=== PATIENT | male | born 1940 | race Caucasian/White ===

== ENCOUNTER → 2016-07-08 | Outpatient (REF) | payer BC ==
[~2016-07-08] MED LIST: ACET500C PO; ASPI81TA85 PO; CALC600T9 PO; CLOP75TA2 PO; COUM2.5T11 PO; GLUC500C4 PO; LIPI20TA PO; LISI-542 PO; MULT1TAB8 PO; PERC5TAB6 PO; VITA400C29 PO
[2016-07-08 11:56] LABS: BASO % 0.4 % (0.0-1.0); EOS # 0.2 K/mm3 (0.0-0.50); EOS % 2.9 % (0.0-3.0); LARGE UNSTAINED CELL # 0.2 K/mm3 (0.0-0.4); LYMPH # 3.4 K/mm3 (1.5-4.5); LYMPH % 39.6 % (24.0-44.0); MEAN CORPUSCULAR HEMOGLOBIN 30.8 pg (27.0-33.0); MEAN CORPUSCULAR HGB CONC 33.7 g/dl (32.0-36.5); MEAN CORPUSCULAR VOLUME 91.3 fl (80.0-96.0); MONO # 0.6 K/mm3 (0.0-0.8); MONO % 7.3 % (0.0-5.0); NEUTROPHILS # 3.9 K/mm3 (1.8-7.7); NEUTROPHILS % 47.9 % (36.0-66.0); PLATELET COUNT, AUTOMATED 168 k/mm3 (150-450); RED CELL DISTRIBUTION WIDTH 13.9 % (11.5-14.5); WHITE BLOOD COUNT 8.2 K/mm3 (4.0-10.0)
[2016-07-08 12:23] LABS: ALBUMIN 4.1 GM/DL (3.2-5.2); ALBUMIN/GLOBULIN RATIO 1.32 (1.00-1.93); BILIRUBIN,TOTAL 0.6 MG/DL (0.2-1.0); CALCIUM LEVEL 8.6 MG/DL (8.8-10.2); CREATININE FOR GFR 1.28 MG/DL (0.70-1.30); GLOMERULAR FILTRATION RATE 58.2 (>42); PERCENT SATURATION 27.5 % (19.7-37.4); POTASSIUM SERUM 4.8 MEQ/L (3.5-5.1); TOTAL PROTEIN 7.2 GM/DL (6.4-8.2)
== END ==
LOC: M SFHCPLAZ 10:27
PROVIDERS: ATTEND Family Medicine
DX: N18.3 Chronic kidney disease, stage 3 (moderate) (principal); E55.9 Vitamin D deficiency, unspecified; R73.01 Impaired fasting glucose; Z12.5 Encounter for screening for malignant neoplasm of prostate
CPT/HCPCS: 36415; 80053; 82728; 83036; 83550; 83970; 85025; G0103

== ENCOUNTER → 2017-02-10 | Outpatient (REF) | payer BC ==
[~2017-02-10] MED LIST changes: -COUM2.5T11 PO; +COUM2.5T17 PO; +PERC5TAB12 PO; -PERC5TAB6 PO
[2017-02-10 11:56] LABS: ALBUMIN 3.9 GM/DL (3.2-5.2); ALBUMIN/GLOBULIN RATIO 1.26 (1.00-1.93); BILIRUBIN,TOTAL 0.8 MG/DL (0.2-1.0); CALCIUM LEVEL 8.8 MG/DL (8.8-10.2); CREATININE FOR GFR 1.48 MG/DL (0.70-1.30); GLOMERULAR FILTRATION RATE 49.2 (>42); POTASSIUM SERUM 4.6 MEQ/L (3.5-5.1)
== END ==
LOC: M SFHCPLAZ 09:23
PROVIDERS: ATTEND Family Medicine
DX: N18.3 Chronic kidney disease, stage 3 (moderate) (principal); R73.01 Impaired fasting glucose; E78.5 Hyperlipidemia, unspecified

== ENCOUNTER → 2017-02-21 | Outpatient (CLI) | payer BC ==
--- NOTE | 2017-02-21 09:21 | REP ---
CT Head without contrast HISTORY: Headache COMPARISON: 06/14/2013 Areas of decreased attenuation is present in the left basal ganglia. This represents an old lacunar infarction. Areas of decreased attenuation are present in the periventricular white matter. This represents small-vessel ischemic disease. There is no intraparenchymal hemorrhage, acute infarct, mass or midline shift. The ventricular system and cortical sulci are dilated consistent with mild volume loss. There is no extra cerebral collection. There is no fracture. Mucosal thickening is present in the left sphenoid sinus. IMPRESSION: 1. 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 2. Small vessel ischemic disease. 3. Mild volume loss. Signed by Javi Delaney MD 02/21/2017 09:11 A
== END ==
LOC: M RAD 08:54
PROVIDERS: ATTEND Family Medicine
DX: R51 Headache (principal); I73.9 Peripheral vascular disease, unspecified; G93.9 Disorder of brain, unspecified

== ENCOUNTER → 2018-05-18 | Outpatient (REF) | payer BC, OTHER ==
[2018-05-18 12:07] LABS: ALT/SGPT 33 U/L (12-78); BILIRUBIN,TOTAL 0.4 MG/DL (0.2-1.0); BLOOD UREA NITROGEN 19 MG/DL (7-18); C REACTIVE PROTEIN QUANTITATIV < 0.30 MG/DL (0.00-0.30); CARBON DIOXIDE LEVEL 28 MEQ/L (21-32); CHLORIDE LEVEL 109 MEQ/L (98-107); CHOLESTEROL LEVEL 163 MG/DL (<200); CHOLESTEROL RISK RATIO 2.587 (<5); CPK CREATINE PHOSPHOKINASE 84 U/L (39-308); CREATININE FOR GFR 1.28 MG/DL (0.70-1.30); FREE T4 0.84 NG/DL (0.76-1.46); GLOMERULAR FILTRATION RATE 57.9 (>42); GLUCOSE, FASTING 102 MG/DL (70-100); HDL CHOLESTEROL 63 MG/DL (>40); LDL CHOLESTEROL 74 MG/DL (<100); NON-HDL-C 100 MG/DL; NT-PRO BNP 98 PG/ML (<450); POTASSIUM SERUM 4.5 MEQ/L (3.5-5.1); SODIUM LEVEL 143 MEQ/L (136-145); TOTAL PROTEIN 7.1 GM/DL (6.4-8.2); TRIGLYCERIDES LEVEL 130 MG/DL (<150)
== END ==
LOC: M SFHCPLAZ 10:05
PROVIDERS: ATTEND Family Medicine
DX: E78.5 Hyperlipidemia, unspecified (principal); I12.9 Hypertensive chronic kidney disease with stage 1 through stage 4 chronic kidney disease, or unspecified chronic kidney disease; N18.3 Chronic kidney disease, stage 3 (moderate); R73.01 Impaired fasting glucose; Z12.5 Encounter for screening for malignant neoplasm of prostate; E55.9 Vitamin D deficiency, unspecified

== ENCOUNTER → 2019-01-26 | Outpatient (REF) | payer MEDICARE, OTHER ==
[2019-01-26 12:23] LABS: BASO % 0.6 % (0.0-1.0); EOS # 0.2 10^3/uL (0.0-0.5); EOS % 3.2 % (0.0-3.0); HEMATOCRIT 43.5 % (42.0-52.0); HEMOGLOBIN 14.3 g/dl (13.5-17.5); LYMPH # 2.3 10^3/uL (1.5-5.0); LYMPH % 35.1 % (24.0-44.0); MEAN CORPUSCULAR HEMOGLOBIN 31.2 pg (27.0-33.0); MEAN CORPUSCULAR HGB CONC 32.9 g/dl (32.0-36.5); MONO # 0.5 10^3/uL (0.0-0.8); MONO % 7.9 % (0.0-5.0); NEUTROPHILS # 3.5 10^3/uL (1.5-8.5); PLATELET COUNT, AUTOMATED 175 10^3/uL (150-450); RED BLOOD COUNT 4.58 10^6/uL (4.30-6.10); WHITE BLOOD COUNT 6.6 10^3/uL (4.0-10.0)
[2019-01-26 12:42] LABS: HEMOGLOBIN A1c 6.1 %
[2019-01-26 13:00] LABS: BILIRUBIN,TOTAL 0.8 MG/DL (0.2-1.0); CALCIUM LEVEL 9.4 MG/DL (8.8-10.2); CREATININE FOR GFR 1.35 MG/DL (0.70-1.30); GLOMERULAR FILTRATION RATE 54.4 (>42); MAGNESIUM LEVEL 2.3 MG/DL (1.8-2.4); POTASSIUM SERUM 4.6 MEQ/L (3.5-5.1); TOTAL PROTEIN 6.9 GM/DL (6.4-8.2)
== END ==
LOC: M SFHCPLAZ 10:37
PROVIDERS: ATTEND Physician Assistant Medical
DX: N18.3 Chronic kidney disease, stage 3 (moderate) (principal); I10 Essential (primary) hypertension; R73.01 Impaired fasting glucose

== ENCOUNTER → 2019-07-12 | Outpatient (CLI) | payer OTHER ==
[2019-07-12 11:54] LABS: BASO % 0.3 % (0.0-1.0); EOS # 0.2 10^3/uL (0.0-0.5); EOS % 3.6 % (0.0-3.0); HEMOGLOBIN 13.4 g/dl (13.5-17.5); LYMPH # 2.8 10^3/uL (1.5-5.0); LYMPH % 41.2 % (24.0-44.0); MEAN CORPUSCULAR HEMOGLOBIN 30.7 pg (27.0-33.0); MEAN CORPUSCULAR HGB CONC 32.7 g/dl (32.0-36.5); MONO # 0.5 10^3/uL (0.0-0.8); MONO % 7.7 % (0.0-5.0); NEUTROPHILS # 3.2 10^3/uL (1.5-8.5); NEUTROPHILS % 46.9 % (36.0-66.0); PLATELET COUNT, AUTOMATED 165 10^3/uL (150-450); RED BLOOD COUNT 4.36 10^6/uL (4.30-6.10); WHITE BLOOD COUNT 6.7 10^3/uL (4.0-10.0)
[2019-07-12 12:06] LABS: ALBUMIN 3.6 GM/DL (3.2-5.2); BILIRUBIN,TOTAL 0.7 MG/DL (0.2-1.0); CREATININE FOR GFR 1.39 MG/DL (0.70-1.30); GLOMERULAR FILTRATION RATE 52.5 (>42); MAGNESIUM LEVEL 2.1 MG/DL (1.8-2.4); POTASSIUM SERUM 4.6 MEQ/L (3.5-5.1); TOTAL PROTEIN 6.4 GM/DL (6.4-8.2)
[2019-07-12 13:44] LABS: HEMOGLOBIN A1c 6.2 %
== END ==
LOC: M PLALAB 09:59
PROVIDERS: ATTEND Physician Assistant Medical
DX: I12.9 Hypertensive chronic kidney disease with stage 1 through stage 4 chronic kidney disease, or unspecified chronic kidney disease (principal); R73.01 Impaired fasting glucose; N18.3 Chronic kidney disease, stage 3 (moderate)

== ENCOUNTER → 2019-08-02 | Outpatient (CLI) | payer OTHER ==
--- NOTE | 2019-08-02 12:08 | REP ---
Clinical: Testicular cyst. Technique: Real time garzon scale and color Doppler evaluation using linear and curved array transducers. Findings: The bilateral testicles are normal in contour, size, echogenicity, and vascularity without intratesticular mass lesion, infectious/inflammatory process or torsion. No significant hydroceles or varicoceles noted. Bilateral complex epididymal cysts/spermatocele noted. Largest cystic lesion on the right side with internal debris measures 6.0 x 4.5 x 4.4 cm while the largest left-sided epididymal cyst measures 8 mm diameter. A left sided medial tunica cyst is also appreciated measuring approximately 9 x 8 x 8 mm. Impression: 1. Normal bilateral testicles. 2. Large right epididymal cyst/spermatocele with internal debris. 3. Smaller left epididymal and left tunica cysts. Electronically Signed by Ge Cortez MD 08/02/2019 11:59 A
== END ==
LOC: M RAD 10:53
PROVIDERS: ATTEND Family Medicine
DX: N44.2 Benign cyst of testis (principal)

== ENCOUNTER → 2019-08-05 | Outpatient (CLI) | payer OTHER ==
[~2019-08-05] MED LIST changes: +GASTROGRAFIN SOLUTION 30ML (Q9963) As Ordered ONE; +ISOVUE-370 76% 100ML VIAL (Q9967) As Ordered ONE
--- NOTE | 2019-08-05 15:37 | REP ---
CT ABDOMEN AND PELVIS WITH ORAL AND IV CONTRAST: TECHNIQUE: Axial contrast enhanced images from the lung bases to the pubic symphysis using 100 mL Isovue 370 intravenous contrast material with multiplanar reformations. Visualized lung bases demonstrate mild interstitial fibrosis. There is a small hiatal hernia. Liver demonstrates no mass. There are small gallstones in the gallbladder without evidence of gallbladder wall edema. There is no evidence of biliary dilatation. Spleen is normal in size with no intrinsic abnormality. The adrenal glands demonstrate no nodule. No pancreatic mass is seen. A few peripelvic cysts are seen of the left kidney without other renal abnormality bilaterally. There is aneurysmal dilatation of the distal abdominal aorta below the level of the renal arteries, maximum AP diameter is 3.7 cm. There is mild atherosclerotic calcification of the abdominal aorta. There is no adenopathy. There is no free air or free fluid. There is no bowel wall thickening. There is diffuse diverticulosis of the left and sigmoid colon without evidence of acute diverticulitis. Diverticulum was noted at the left base of the bladder with no other bladder abnormality identified. 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 There are degenerative changes of the spine. IMPRESSION: Left colonic and sigmoid diverticulosis without evidence of acute diverticulitis. No free air or free fluid. 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 Small hiatal hernia. Small gallstones in the gallbladder without evidence of gallbladder wall edema. Aneurysmal dilatation of the distal abdominal aorta maximum AP diameter is 3.7 cm. There are a few peripelvic cysts of the left kidney. Electronically Signed by Fracisco Bowen MD 08/05/2019 05:00 P
== END ==
LOC: M RAD 11:45
PROVIDERS: ATTEND Family Medicine
DX: R10.9 Unspecified abdominal pain (principal)
CPT/HCPCS: 74177; Q9963; Q9967

== ENCOUNTER → 2020-04-21 | Outpatient (CLI) | payer OTHER ==
[~2020-04-21] MED LIST changes: -GASTROGRAFIN SOLUTION 30ML (Q9963) As Ordered ONE; -ISOVUE-370 76% 100ML VIAL (Q9967) As Ordered ONE
--- NOTE | 2020-04-21 15:58 | REPPI ---
INDICATION: DJD. COMPARISON: 01/19/2016. TECHNIQUE: There are two views. 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 There is no fracture or dislocation. There are no calcifications or foreign bodies. IMPRESSION: Right hip arthroplasty, unchanged. <Electronically signed by Fracisco Platt > 04/21/20 [id number]
--- NOTE | 2020-04-21 16:00 | REPPI ---
INDICATION: DJD COMPARISON: None. TECHNIQUE: Four views. FINDINGS: There is a right hip arthroplasty in satisfactory position and alignment. Mineralization is normal. There is no fracture or dislocation. There are no calcifications or foreign bodies. IMPRESSION: Right hip arthroplasty. Otherwise, negative right femur. <Electronically signed by Fracisco Platt > 04/21/20 [id number]
--- NOTE | 2020-04-21 16:23 | REPPI ---
INDICATION: DJD. COMPARISON: Comparison study is from September 11, 2015.. TECHNIQUE: Five views. FINDINGS: There is straightening of the normal lumbar lordosis. There is diffuse degenerative disc disease with narrowing and anterior and posterior osteophyte formation. Vertebral body heights are preserved. Alignment is normal. No bony destructive lesion is seen. Psoas margins are intact. Sacrum and SI joints are unremarkable. There is a prosthetic right hip joint. No fracture or collapse. No bony destructive lesions seen. IMPRESSION: Fairly advanced degenerative disc disease. Straightening. There is some progressive degenerative disc narrowing at L3-4 compared to the prior study otherwise unchanged. <Electronically signed by Ion Mendoza > 04/21/20 [id number]
== END ==
LOC: M PLAIMG 13:15
PROVIDERS: ATTEND Family Medicine
DX: M47.816 Spondylosis without myelopathy or radiculopathy, lumbar region (principal); M51.36 Other intervertebral disc degeneration, lumbar region; M25.78 Osteophyte, vertebrae; E78.5 Hyperlipidemia, unspecified; R73.01 Impaired fasting glucose; E55.9 Vitamin D deficiency, unspecified; D75.89 Other specified diseases of blood and blood-forming organs; Z12.5 Encounter for screening for malignant neoplasm of prostate; Z96.651 Presence of right artificial knee joint
CPT/HCPCS: 36415; 72110; 73502; 73552; 80053; 80061; 82306; 82607; 83036; 83525; 83970; 84165; G0103

== ENCOUNTER → 2020-04-21 | Outpatient (REF) | payer OTHER ==
[2020-04-21 15:57] LABS: HEMOGLOBIN A1c 6.2 %
[2020-04-21 16:10] LABS: ALBUMIN 3.7 GM/DL (3.2-5.2); ALT/SGPT 31 U/L (12-78); BILIRUBIN,TOTAL 0.6 MG/DL (0.2-1.0); BLOOD UREA NITROGEN 26 MG/DL (7-18); CALCIUM LEVEL 8.7 MG/DL (8.8-10.2); CARBON DIOXIDE LEVEL 28 MEQ/L (21-32); CHLORIDE LEVEL 110 MEQ/L (98-107); CHOLESTEROL LEVEL 161 MG/DL (<200); CHOLESTEROL RISK RATIO 2.875 (<5); CREATININE FOR GFR 1.49 MG/DL (0.70-1.30); GLOMERULAR FILTRATION RATE 48.3 (>35); GLUCOSE, FASTING 115 MG/DL (70-100); HDL CHOLESTEROL 56 MG/DL (>40); LDL CHOLESTEROL 68 MG/DL (<100); NON-HDL-C 105 MG/DL; POTASSIUM SERUM 4.5 MEQ/L (3.5-5.1); SODIUM LEVEL 144 MEQ/L (136-145); TOTAL PROTEIN 6.7 GM/DL (6.4-8.2); TRIGLYCERIDES LEVEL 186 MG/DL (<150)
[2020-04-21 16:18] LABS: PTH INTACT 76.2 PG/ML (18.5-88.0); VITAMIN B12 LEVEL 420 PG/ML (247-911)
[2020-04-24 12:09] LABS: ALBUMIN 3.95 GM/DL (3.29-5.55); ALBUMIN % 58.9 % (55.8-66.1); ALPHA-1-GLOBULIN % 4.9 % (2.9-4.9); ALPHA-1-GLOBULINS 0.33 GM/DL (0.17-0.41); ALPHA-2-GLOBULINS 0.91 GM/DL (0.42-0.99); ALPHA-2-GLOBULINS % 13.6 % (7.1-11.8); BETA-1-GLOBULINS 0.39 GM/DL (0.28-0.60); BETA-1-GLOBULINS % 5.8 % (4.7-7.2); BETA-2-GLOBULINS 0.36 GM/DL (0.19-0.55); BETA-2-GLOBULINS % 5.3 % (3.2-6.5); GAMMA GLOBULIN % 11.5 % (11.1-18.8); GAMMA GLOBULINS 0.77 GM/DL (0.65-1.58)
== END ==
LOC: M PLALAB 13:20
PROVIDERS: ATTEND Family Medicine
DX: E78.5 Hyperlipidemia, unspecified (principal); R73.01 Impaired fasting glucose; E55.9 Vitamin D deficiency, unspecified; D75.89 Other specified diseases of blood and blood-forming organs; Z12.5 Encounter for screening for malignant neoplasm of prostate

== ENCOUNTER → 2020-10-30 | Outpatient (REF) | payer OTHER ==
[~2020-10-30] MED LIST changes: -LISI-542 PO; +LISI-898 PO
[2020-10-30 19:00] LABS: BILIRUBIN,TOTAL 0.5 MG/DL (0.2-1.0); C REACTIVE PROTEIN QUANTITATIV 0.3 MG/DL (0.00-0.30); CALCIUM LEVEL 9.4 MG/DL (8.8-10.2); CREATININE FOR GFR 1.27 MG/DL (0.70-1.30); CREATININE,RANDOM URINE 97.9 MG/DL; GLOMERULAR FILTRATION RATE 58.1 (>35); POTASSIUM SERUM 4.9 MEQ/L (3.5-5.1); TOTAL PROTEIN 7.2 GM/DL (6.4-8.2); TOTAL PROTEIN,RANDOM URINE 6.5 MG/DL (0.0-12.0)
[2020-10-30 19:54] LABS: HEMOGLOBIN A1c 6.2 %
== END ==
LOC: M SFHCPLAZ 14:53
PROVIDERS: ATTEND Family Medicine
DX: R73.01 Impaired fasting glucose (principal); E55.9 Vitamin D deficiency, unspecified; N18.30 Chronic kidney disease, stage 3 unspecified; I12.9 Hypertensive chronic kidney disease with stage 1 through stage 4 chronic kidney disease, or unspecified chronic kidney disease; E78.5 Hyperlipidemia, unspecified
CPT/HCPCS: 36415; 80053; 82550; 82570; 83036; 83525; 83880; 83970; 84156; 86140; G0463

== ENCOUNTER → 2021-04-30 | Outpatient (CLI) | payer OTHER ==
[2021-04-30 18:03] LABS: BASO # 0.1 10^3/uL (0.0-0.2); BASO % 0.6 % (0.0-1.0); EOS # 0.3 10^3/uL (0.0-0.5); EOS % 3.4 % (0.0-3.0); HEMATOCRIT 41.9 % (42.0-52.0); HEMOGLOBIN 13.5 g/dl (13.5-17.5); LYMPH # 2.9 10^3/uL (1.5-5.0); LYMPH % 32.2 % (24.0-44.0); MEAN CORPUSCULAR HEMOGLOBIN 30.6 pg (27.0-33.0); MEAN CORPUSCULAR HGB CONC 32.2 g/dl (32.0-36.5); MONO % 11.4 % (2.0-8.0); NEUTROPHILS # 4.6 10^3/uL (1.5-8.5); NEUTROPHILS % 51.9 % (36.0-66.0); PLATELET COUNT, AUTOMATED 178 10^3/uL (150-450); RED BLOOD COUNT 4.41 10^6/uL (4.30-6.10); WHITE BLOOD COUNT 8.9 10^3/uL (4.0-10.0)
[2021-04-30 18:37] LABS: ALBUMIN 3.7 GM/DL (3.2-5.2); ALT/SGPT 30 U/L (12-78); BILIRUBIN,TOTAL 0.6 MG/DL (0.2-1.0); BLOOD UREA NITROGEN 22 MG/DL (7-18); CALCIUM LEVEL 8.7 MG/DL (8.8-10.2); CARBON DIOXIDE LEVEL 25 MEQ/L (21-32); CHLORIDE LEVEL 112 MEQ/L (98-107); CHOLESTEROL LEVEL 157 MG/DL (<200); CREATININE FOR GFR 1.27 MG/DL (0.70-1.30); FERRITIN 75 NG/ML (26-388); FREE T4 0.82 NG/DL (0.76-1.46); GLOMERULAR FILTRATION RATE 57.9 (>35); GLUCOSE, FASTING 98 MG/DL (70-100); HDL CHOLESTEROL 50 MG/DL (>40); LDL CHOLESTEROL 74 MG/DL (<100); NON-HDL-C 107 MG/DL; POTASSIUM SERUM 4.6 MEQ/L (3.5-5.1); SODIUM LEVEL 144 MEQ/L (136-145); TOTAL PROTEIN 6.7 GM/DL (6.4-8.2); TRIGLYCERIDES LEVEL 166 MG/DL (<150)
[2021-04-30 18:38] LABS: VITAMIN B12 LEVEL 372 PG/ML (247-911)
[2021-04-30 18:52] LABS: HEMOGLOBIN A1c 6.3 %
== END ==
LOC: M PLALAB 14:27
PROVIDERS: ATTEND Family Medicine
DX: R73.01 Impaired fasting glucose (principal); D50.9 Iron deficiency anemia, unspecified; E78.00 Pure hypercholesterolemia, unspecified; Z12.5 Encounter for screening for malignant neoplasm of prostate
CPT/HCPCS: 36415; 80053; 80061; 82607; 82728; 83036; 84439; 84443; 85025; 86335; G0103; G0463

== ENCOUNTER → 2021-10-29 | Outpatient (CLI) | payer OTHER ==
[~2021-10-29] MED LIST changes: -LISI-898 PO; +LISI5TAB11 PO
[2021-10-29 17:18] LABS: BASO % 0.4 % (0.0-1.0); EOS # 0.2 10^3/uL (0.0-0.5); EOS % 2.5 % (0.0-3.0); HEMATOCRIT 43.2 % (42.0-52.0); LYMPH # 2.6 10^3/uL (1.5-5.0); LYMPH % 35.1 % (24.0-44.0); MEAN CORPUSCULAR HEMOGLOBIN 30.4 pg (27.0-33.0); MEAN CORPUSCULAR HGB CONC 32.4 g/dl (32.0-36.5); MEAN CORPUSCULAR VOLUME 93.7 fl (80.0-96.0); MONO # 0.8 10^3/uL (0.0-0.8); MONO % 10.2 % (2.0-8.0); NEUTROPHILS # 3.8 10^3/uL (1.5-8.5); NEUTROPHILS % 51.5 % (36.0-66.0); PLATELET COUNT, AUTOMATED 163 10^3/uL (150-450); RED BLOOD COUNT 4.61 10^6/uL (4.30-6.10); WHITE BLOOD COUNT 7.5 10^3/uL (4.0-10.0)
[2021-10-29 17:23] LABS: ALBUMIN 3.9 GM/DL (3.2-5.2); BILIRUBIN,TOTAL 0.4 MG/DL (0.2-1.0); CALCIUM LEVEL 9.1 MG/DL (8.8-10.2); CREATININE FOR GFR 1.27 MG/DL (0.70-1.30); GLOMERULAR FILTRATION RATE 57.9 (>35); POTASSIUM SERUM 4.9 MEQ/L (3.5-5.1); TOTAL PROTEIN 6.9 GM/DL (6.4-8.2)
[2021-10-29 18:21] LABS: HEMOGLOBIN A1c 6.3 %
== END ==
LOC: M PLALAB 14:29
PROVIDERS: ATTEND Family Medicine
DX: R73.01 Impaired fasting glucose (principal); D75.89 Other specified diseases of blood and blood-forming organs

== ENCOUNTER → 2022-07-15 | Outpatient (CLI) | payer OTHER ==
[2022-07-15 15:50] LABS: HEMATOCRIT 41.6 % (42.0-52.0)
[2022-07-15 16:11] LABS: HEMOGLOBIN A1c 6.1 % (4.0-6.0)
[2022-07-15 16:28] LABS: CHOLESTEROL RISK RATIO 2.79 (<5); HDL CHOLESTEROL 50.1 MG/DL (>40); LDL CHOLESTEROL 58.1 MG/DL (<100); TOTAL 25(OH) VITAMIN D 25.7 NG/ML (20.0-100.0)
[2022-07-15 16:29] LABS: PTH INTACT 129.7 PG/ML (18.5-88.0)
== END ==
LOC: M PLALAB 14:30
PROVIDERS: ATTEND Family Medicine
DX: R73.01 Impaired fasting glucose (principal); Z12.5 Encounter for screening for malignant neoplasm of prostate; E78.00 Pure hypercholesterolemia, unspecified
CPT/HCPCS: 36415; 80061; 82306; 82607; 82747; 83036; 83525; 83970; G0103

== ENCOUNTER → 2022-09-23 | Outpatient (CLI) | payer OTHER ==
[2022-09-23 17:09] LABS: BASO # 0.1 10^3/uL (0.0-0.2); BASO % 0.6 % (0.0-1.0); EOS # 0.3 10^3/uL (0.0-0.5); EOS % 3.8 % (0.0-3.0); HEMATOCRIT 41.3 % (42.0-52.0); HEMOGLOBIN 13.2 g/dl (13.5-17.5); LYMPH # 3.1 10^3/uL (1.5-5.0); LYMPH % 39.1 % (24.0-44.0); MEAN CORPUSCULAR HEMOGLOBIN 30.1 pg (27.0-33.0); MEAN CORPUSCULAR VOLUME 94.1 fl (80.0-96.0); MONO # 0.8 10^3/uL (0.0-0.8); MONO % 9.7 % (2.0-8.0); NEUTROPHILS # 3.7 10^3/uL (1.5-8.5); NEUTROPHILS % 46.3 % (36.0-66.0); PLATELET COUNT, AUTOMATED 195 10^3/uL (150-450); RED BLOOD COUNT 4.39 10^6/uL (4.30-6.10); WHITE BLOOD COUNT 7.9 10^3/uL (4.0-10.0)
[2022-09-23 18:08] LABS: ERYTHROCYTE SEDIMENTATION RATE 28 mm/hr (0-20)
== END ==
LOC: M PLALAB 15:32
PROVIDERS: ATTEND Orthopaedic Surgery
DX: Z96.641 Presence of right artificial hip joint (principal)

== ENCOUNTER → 2022-10-31 | Outpatient (CLI) | payer OTHER | LOC: M RAD 07:43 | PROVIDERS: ATTEND Orthopaedic Surgery | DX: Z96.641 Presence of right artificial hip joint (principal); M25.551 Pain in right hip | CPT/HCPCS: 78315; A9503 ==

== ENCOUNTER → 2022-12-09 | Outpatient (REF) | payer OTHER | LOC: M SFHCPLAZ 12:06 | PROVIDERS: ATTEND Family Medicine | DX: E53.8 Deficiency of other specified B group vitamins (principal); I10 Essential (primary) hypertension; K21.9 Gastro-esophageal reflux disease without esophagitis ==

== ENCOUNTER 2023-01-27 10:43 | Day surgery (SDC) | payer OTHER ==
[~2023-01-27] VITALS: Ht 180.3 cm; Wt 116.9 kg
[~2023-01-27 10:43] MED LIST changes: +ASPI81CH48 PO; +ATOR80TA59 PO; +NATU1TAB5 PO; +NS 1,000 ML IV ONE; +VITA500T40 PO
[2023-01-27] MEDS ORDERED: propofoL 200 MG/20 ML VIAL As Ordered ONE (12:08)
[2023-01-27 12:13] VITALS: TEMP 99
[2023-01-27] MEDS ORDERED: LIDOCAINE 2% 100MG/5ML SDV (FOR ANES.) As Ordered ONE (12:14)
[2023-01-27 12:33] VITALS: BP 108/65; O2SAT 94
== END 2023-01-27 12:39 | disposition home or self-care (01) ==
LOC: M OPP 10:43
PROVIDERS: ATTEND Internal Medicine Gastroenterology
DX: K64.0 First degree hemorrhoids (principal); K57.30 Diverticulosis of large intestine without perforation or abscess without bleeding; R19.4 Change in bowel habit; Z79.02 Long term (current) use of antithrombotics/antiplatelets; Z79.82 Long term (current) use of aspirin

== ENCOUNTER 2023-04-28 21:00 | Emergency (ER) | payer MEDICARE, OTHER ==
[2023-04-28 21:00] VITALS: TEMP 97.5
[~2023-04-28 21:00] MED LIST changes: -NS 1,000 ML IV ONE
[2023-04-28] MEDS ORDERED: ISOVUE-370 76% 100ML VIAL As Ordered ONE (21:15)
[2023-04-28 21:30] LABS: HEMATOCRIT 44.2 % (42.0-52.0); HEMOGLOBIN 14.5 g/dl (13.5-17.5); MEAN CORPUSCULAR HEMOGLOBIN 32.3 pg (27.0-33.0); MEAN CORPUSCULAR HGB CONC 32.8 g/dl (32.0-36.5); MEAN CORPUSCULAR VOLUME 98.4 fl (80.0-96.0); PLATELET COUNT, AUTOMATED 177 10^3/uL (150-450); RED BLOOD COUNT 4.49 10^6/uL (4.30-6.10); WHITE BLOOD COUNT 14.5 10^3/uL (4.0-10.0)
[2023-04-28] MEDS ORDERED: NS 1,000 ML IV ONE (21:35)
[2023-04-28 22:02] LABS: ATYPICAL LYMPH 8 % (0-5); CK-MB VALUE MASS 3.5 NG/ML (<3.6); EOSINOPHILS 1 % (0-3); LYMPHOCYTES 51 % (16-44); MONOCYTES 4 % (0-5); NEUTROPHILS 36 % (28-66); PLATELET ESTIMATE NORMAL (NORMAL)
[2023-04-28 22:03] LABS: CALCIUM LEVEL 8.9 MG/DL (8.3-10.6); CREATININE FOR GFR 1.71 MG/DL (0.70-1.30); GLOMERULAR FILTRATION RATE 40.9 (>35); MB/CK RELATIVE INDEX 2.27 (< OR =4)
[2023-04-28] MEDS ORDERED: TENECTEPLASE 50 MG KIT (TNKase) IVP ONE (23:30)
[2023-04-29 01:41] VITALS: BP 121/64; TEMP 98.7; O2SAT 99
[2023-04-29] MEDS ORDERED: SODIUM CHLORIDE 0.9% INJ 10 ML SYR IV ONE ×2 (06:00)
== END 2023-04-29 01:49 | disposition short-term general hospital (02) ==
LOC: EDBD 21:00 → M ED 21:00
DX: I63.9 Cerebral infarction, unspecified (principal); T21.11XA Burn of first degree of chest wall, initial encounter; Y92.002 Bathroom of unspecified non-institutional (private) residence as the place of occurrence of the external cause; Y93.9 Activity, unspecified; E78.5 Hyperlipidemia, unspecified; Z85.828 Personal history of other malignant neoplasm of skin; Z79.82 Long term (current) use of aspirin; Z79.899 Other long term (current) drug therapy
CPT/HCPCS: 70450; 70496; 70498; 71045; 73521; 80047; 80048; 82550; 82553; 84484; 85025; 85730; 87486; 87581; 87633; 87798; 93005; 93041; 94760; 96361; 96374; 99285; J3101; Q9967

== ENCOUNTER → 2023-08-31 | Outpatient (REF) | payer OTHER ==
[~2023-08-31] MED LIST changes: +ASPI81TA26 PO; +DIVA125C6 PO; +LEXA1TAB PO
== END ==
LOC: M WUC 18:15
PROVIDERS: ATTEND Registered Nurse
DX: N39.0 Urinary tract infection, site not specified (principal)

== ENCOUNTER 2023-09-01 10:01 | Observation (INO) | payer OTHER ==
[~2023-09-01] VITALS: Ht 182.9 cm; Wt 103.0 kg
[~2023-09-01 10:01] MED LIST changes: -ASPI81TA26 PO; -DIVA125C6 PO; -LEXA1TAB PO
[2023-09-01] MEDS ORDERED: LEXA1TAB PO (11:32)
[2023-09-01] MEDS ORDERED: ASPI81TA26 PO (11:32)
[2023-09-01] MEDS ORDERED: DIVA125C6 PO (11:32)
[2023-09-01] MEDS ORDERED: HOME MED LIST COMPLETE! XX SCH (11:35)
[2023-09-01 13:10] LABS: BASO % 0.3 % (0.0-1.0); EOS # 0.3 10^3/uL (0.0-0.5); EOS % 5.2 % (0.0-3.0); HEMATOCRIT 38.2 % (42.0-52.0); HEMOGLOBIN 11.9 g/dl (13.5-17.5); LYMPH # 1.7 10^3/uL (1.5-5.0); LYMPH % 27.5 % (24.0-44.0); MEAN CORPUSCULAR HEMOGLOBIN 30.4 pg (27.0-33.0); MEAN CORPUSCULAR HGB CONC 31.2 g/dl (32.0-36.5); MEAN CORPUSCULAR VOLUME 97.7 fl (80.0-96.0); MONO # 0.8 10^3/uL (0.0-0.8); MONO % 11.9 % (2.0-8.0); NEUTROPHILS # 3.4 10^3/uL (1.5-8.5); NEUTROPHILS % 54.5 % (36.0-66.0); PLATELET COUNT, AUTOMATED 182 10^3/uL (150-450); RED BLOOD COUNT 3.91 10^6/uL (4.30-6.10); WHITE BLOOD COUNT 6.3 10^3/uL (4.0-10.0)
[2023-09-01 14:12] LABS: ALBUMIN 2.5 G/DL (3.2-5.2); ALKALINE PHOSPHATASE 99 U/L (46-116); ALT/SGPT 23 U/L (7.0-40); AST/SGOT 36 U/L (<34); BILIRUBIN,DIRECT 0.1 MG/DL (<0.4); BILIRUBIN,TOTAL 0.4 MG/DL (0.3-1.2); BLOOD UREA NITROGEN 17 MG/DL (9-23); CARBON DIOXIDE LEVEL 28 MMOL/L (20-31); CHLORIDE LEVEL 105 MMOL/L (98-107); CK-MB VALUE MASS 1.2 NG/ML (<3.6); CPK CREATINE PHOSPHOKINASE 41 U/L (46-171); CREATININE FOR GFR 0.97 MG/DL (0.70-1.30); GLOMERULAR FILTRATION RATE > 60.0 (>35); GLUCOSE, FASTING 86 MG/DL (74-106); MB/CK RELATIVE INDEX 2.92 (< OR =4); POTASSIUM SERUM 4.2 MMOL/L (3.5-5.1); SODIUM LEVEL 140 MMOL/L (136-145); THYROID STIMULATING HORMONE 2.611 uIU/ML (0.55-4.78); TOTAL PROTEIN 5.5 G/DL (5.7-8.2)
[2023-09-01] MEDS: NS 500 ML IV ONE (14:15)
[2023-09-01] MEDS ORDERED: ACETAMINOPHEN TAB 650MG DOSE (2X325MG) PO PRN (15:40)
[2023-09-01] MEDS: NS 1,000 ML IV SCH (16:36)
[2023-09-01 17:19] LABS: CHOLESTEROL RISK RATIO 4.22 (<5); HDL CHOLESTEROL 47.1 MG/DL (>40); LDL CHOLESTEROL 127.1 MG/DL (<100); NON-HDL-C 151.9 MG/DL
[2023-09-01] MEDS: TAMSULOSIN 0.4 MG CAP PO SCH (22:00)
[2023-09-01] MEDS: ESCITALOPRAM OXALATE 10 MG TAB (LEXAPRO) PO SCH (22:01)
[2023-09-01] MEDS: DIVALPROEX SPRINKLE 125 MG CAP PO SCH (22:01)
[2023-09-01 23:25] VITALS: BP 149/67; TEMP 96.9; O2SAT 97
[2023-09-02 01:15] LABS: INR 1.1; PROTHROMBIN TIME 13.9 SECONDS (12.5-14.5)
[2023-09-02 06:07] LABS: HEMATOCRIT 33.9 % (42.0-52.0); HEMOGLOBIN 10.7 g/dl (13.5-17.5); MEAN CORPUSCULAR HEMOGLOBIN 30.4 pg (27.0-33.0); MEAN CORPUSCULAR HGB CONC 31.6 g/dl (32.0-36.5); MEAN CORPUSCULAR VOLUME 96.3 fl (80.0-96.0); PLATELET COUNT, AUTOMATED 154 10^3/uL (150-450); RED BLOOD COUNT 3.52 10^6/uL (4.30-6.10); WHITE BLOOD COUNT 5.5 10^3/uL (4.0-10.0)
[2023-09-02 06:37] LABS: ALBUMIN 2.3 G/DL (3.2-5.2); ALKALINE PHOSPHATASE 89 U/L (46-116); ALT/SGPT 32 U/L (7.0-40); AST/SGOT 36 U/L (<34); BILIRUBIN,TOTAL 0.4 MG/DL (0.3-1.2); BLOOD UREA NITROGEN 14 MG/DL (9-23); CALCIUM LEVEL 8.6 MG/DL (8.3-10.6); CARBON DIOXIDE LEVEL 26 MMOL/L (20-31); CHLORIDE LEVEL 108 MMOL/L (98-107); CREATININE FOR GFR 0.88 MG/DL (0.70-1.30); GLOMERULAR FILTRATION RATE > 60.0 (>35); GLUCOSE, FASTING 89 MG/DL (74-106); POTASSIUM SERUM 4.5 MMOL/L (3.5-5.1); SODIUM LEVEL 140 MMOL/L (136-145); TOTAL PROTEIN 4.8 G/DL (5.7-8.2)
[2023-09-02 08:34] VITALS: BP 104/58; TEMP 97.4
[2023-09-02] MEDS: ASPIRIN 81MG ENTERIC TABLET PO SCH (10:54)
[2023-09-02] MEDS: ENOXAPARIN 40MG/0.4ML SYRINGE (J1650 PER 10MG) SC SCH (10:54)
[2023-09-02 14:00] VITALS: BP 102/58; TEMP 97.5; O2SAT 98
[2023-09-02 19:00] VITALS: BP 102/52; TEMP 97.2; O2SAT 97
[2023-09-02] MEDS: ATORVASTATIN 20 MG TAB PO SCH (21:21)
[2023-09-03 03:39] VITALS: BP 107/57; TEMP 96.8; O2SAT 94
[2023-09-03 08:06] LABS: BLOOD UREA NITROGEN 15 MG/DL (9-23); CALCIUM LEVEL 8.4 MG/DL (8.3-10.6); CARBON DIOXIDE LEVEL 27 MMOL/L (20-31); CHLORIDE LEVEL 109 MMOL/L (98-107); CREATININE FOR GFR 0.93 MG/DL (0.70-1.30); GLOMERULAR FILTRATION RATE > 60.0 (>35); GLUCOSE, FASTING 85 MG/DL (74-106); POTASSIUM SERUM 4.2 MMOL/L (3.5-5.1); SODIUM LEVEL 140 MMOL/L (136-145)
[2023-09-03 08:08] VITALS: BP 115/65; TEMP 97.6; O2SAT 92
[2023-09-03 08:17] LABS: MAGNESIUM LEVEL 1.8 MG/DL (1.8-2.4)
[2023-09-03 16:25] VITALS: BP 110/65; TEMP 96.8; O2SAT 96
[2023-09-03 20:30] VITALS: BP 116/63; TEMP 98.1; O2SAT 94
[2023-09-04 06:00] VITALS: BP 132/69; TEMP 98.6; O2SAT 91
[2023-09-04 07:11] LABS: BLOOD UREA NITROGEN 12 MG/DL (9-23); CALCIUM LEVEL 8.1 MG/DL (8.3-10.6); CARBON DIOXIDE LEVEL 25 MMOL/L (20-31); CHLORIDE LEVEL 109 MMOL/L (98-107); CREATININE FOR GFR 0.91 MG/DL (0.70-1.30); GLOMERULAR FILTRATION RATE > 60.0 (>35); GLUCOSE, FASTING 92 MG/DL (74-106); MAGNESIUM LEVEL 1.8 MG/DL (1.8-2.4); POTASSIUM SERUM 3.9 MMOL/L (3.5-5.1); SODIUM LEVEL 142 MMOL/L (136-145)
[2023-09-04 08:00] VITALS: BP 97/48; TEMP 98; O2SAT 93
[2023-09-04 14:00] VITALS: BP 112/70; TEMP 98.2; O2SAT 92
[2023-09-04 22:00] VITALS: BP 115/70; TEMP 97.9; O2SAT 90
[2023-09-05 06:00] VITALS: BP 118/70; TEMP 98.1; O2SAT 91
[2023-09-05 06:01] VITALS: BP_SYST 106; BP_DIAS 62; BP_DIAS 64
[2023-09-05 08:45] VITALS: BP 100/52; TEMP 98.1; O2SAT 92
[2023-09-05 09:05] LABS: BLOOD UREA NITROGEN 11 MG/DL (9-23); CALCIUM LEVEL 8.5 MG/DL (8.3-10.6); CARBON DIOXIDE LEVEL 25 MMOL/L (20-31); CHLORIDE LEVEL 109 MMOL/L (98-107); CREATININE FOR GFR 0.91 MG/DL (0.70-1.30); GLOMERULAR FILTRATION RATE > 60.0 (>35); GLUCOSE, FASTING 97 MG/DL (74-106); MAGNESIUM LEVEL 1.8 MG/DL (1.8-2.4); SODIUM LEVEL 142 MMOL/L (136-145)
[2023-09-05 10:25] VITALS: BP_SYST 110; BP_SYST 130; BP_SYST 96; BP_DIAS 52; BP_DIAS 60; BP_DIAS 67
[2023-09-05] MEDS ORDERED: ATOR1TAB21 PO (11:29)
[2023-09-05] MEDS ORDERED: FLOM0.4C39 PO (11:29)
== END 2023-09-05 13:23 | disposition home or self-care (01) ==
LOC: M ED 10:01 → M ED INP 10:02 → M PCU 23:16 → M MSPAV 09-03 17:51
PROVIDERS: ADMIT Internal Medicine; ATTEND Student in an Organized Health Care Education/Training Program
DX: R33.9 Retention of urine, unspecified (principal); R53.1 Weakness; I95.1 Orthostatic hypotension; I69.351 Hemiplegia and hemiparesis following cerebral infarction affecting right dominant side; Z87.19 Personal history of other diseases of the digestive system; I10 Essential (primary) hypertension; E78.5 Hyperlipidemia, unspecified; M19.90 Unspecified osteoarthritis, unspecified site; F32.A Depression, unspecified; R13.10 Dysphagia, unspecified; I67.82 Cerebral ischemia; R32 Unspecified urinary incontinence; R26.81 Unsteadiness on feet; R25.8 Other abnormal involuntary movements; Z79.899 Other long term (current) drug therapy; Z79.82 Long term (current) use of aspirin; Z66 Do not resuscitate
CPT/HCPCS: 36415; 51702; 70450; 71045; 80048; 80053; 80061; 80076; 81001; 82550; 82553; 83735; 84443; 84484; 85025; 85027; 85610; 85730; 87486; 87581; 87633; 87798; 92526; 92610; 93005; 93041; 94760; 96360; 96361; 96372; 97161; 97165; 97530; 97535; 99285; G0378; J1650

== ENCOUNTER 2023-09-11 11:40 | Inpatient (IN) | payer OTHER ==
[~2023-09-11] VITALS: Ht 182.9 cm; Wt 100.9 kg
[~2023-09-11 11:40] MED LIST changes: +ASPI81TA26 PO; +ATOR1TAB21 PO; +DIVA125C6 PO; +FLOM0.4C39 PO; +LEXA1TAB PO
[2023-09-11 12:18] LABS: VENOUS BASE EXCESS 0.1 (-2.0-2.0); VENOUS HCO3 24.7 MMOL/L (23.0-27.0); VENOUS O2 SATURATION 88.5 % (60.0-80.0); VENOUS PARTIAL PRESSURE CO2 39.8 mmHg (38.0-50.0); VENOUS PARTIAL PRESSURE O2 56.2 mmHg (30.0-50.0); VENOUS STANDARD HCO3 24.4 MMOL/L; VENOUS TOTAL CO2 25.9 MMOL/L (24.0-28.0)
[2023-09-11 12:23] LABS: BASO % 0.3 % (0.0-1.0); EOS # 0.4 10^3/uL (0.0-0.5); EOS % 4.3 % (0.0-3.0); HEMATOCRIT 35.2 % (42.0-52.0); HEMOGLOBIN 11.4 g/dl (13.5-17.5); LYMPH # 1.9 10^3/uL (1.5-5.0); LYMPH % 20.5 % (24.0-44.0); MEAN CORPUSCULAR HEMOGLOBIN 30.5 pg (27.0-33.0); MEAN CORPUSCULAR HGB CONC 32.4 g/dl (32.0-36.5); MEAN CORPUSCULAR VOLUME 94.1 fl (80.0-96.0); MONO # 1.6 10^3/uL (0.0-0.8); MONO % 16.5 % (2.0-8.0); NEUTROPHILS # 5.4 10^3/uL (1.5-8.5); NEUTROPHILS % 57.5 % (36.0-66.0); PLATELET COUNT, AUTOMATED 195 10^3/uL (150-450); RED BLOOD COUNT 3.74 10^6/uL (4.30-6.10); WHITE BLOOD COUNT 9.4 10^3/uL (4.0-10.0)
[2023-09-11 12:46] LABS: OSMOLALITY SERUM 298 MOSM/KG (280-301)
[2023-09-11 12:49] LABS: ALBUMIN 2.1 G/DL (3.2-5.2); ALKALINE PHOSPHATASE 92 U/L (46-116); ALT/SGPT 13 U/L (7.0-40); AST/SGOT 15 U/L (<34); BILIRUBIN,DIRECT 0.2 MG/DL (<0.4); BILIRUBIN,TOTAL 0.5 MG/DL (0.3-1.2); BLOOD UREA NITROGEN 18 MG/DL (9-23); CALCIUM LEVEL 8.6 MG/DL (8.3-10.6); CARBON DIOXIDE LEVEL 27 MMOL/L (20-31); CHLORIDE LEVEL 105 MMOL/L (98-107); CREATININE FOR GFR 1.01 MG/DL (0.70-1.30); GLOMERULAR FILTRATION RATE > 60.0 (>35); GLUCOSE, FASTING 92 MG/DL (74-106); POTASSIUM SERUM 4.8 MMOL/L (3.5-5.1); SODIUM LEVEL 139 MMOL/L (136-145); TOTAL PROTEIN 5.2 G/DL (5.7-8.2)
[2023-09-11 12:50] LABS: THYROID STIMULATING HORMONE 4.087 uIU/ML (0.55-4.78)
[2023-09-11] MEDS: LIDOCAINE 2% 5ML JELLY UROJET TOP ONE (12:55)
[2023-09-11 13:10] LABS: VALPROIC ACID (DEPAKOTE) 59.4 UG/ML (50.0-100.0)
[2023-09-11] MEDS ORDERED: ATOR40TA75 PO (14:08)
[2023-09-11] MEDS ORDERED: TAMS1CAP17 PO (14:08)
[2023-09-11] MEDS ORDERED: HOME MED LIST COMPLETE! XX SCH (14:10)
[2023-09-11] MEDS: cefTRIAXone SOD 1 GM in D5W MINI-BAG PLUS 50 ML IV ONE (15:30)
[2023-09-11] MEDS ORDERED: MOM 30ML SUSPENSION UDC PO PRN (16:05)
[2023-09-11] MEDS ORDERED: ACETAMINOPHEN TAB 650MG DOSE (2X325MG) PO PRN (16:05)
[2023-09-11 17:10] LABS: PROCALCITONIN 0.09 ng/ml
[2023-09-11 18:00] LABS: INR 1.07; PROTHROMBIN TIME 13.6 SECONDS (12.5-14.5)
[2023-09-11] MEDS: ATORVASTATIN 20 MG TAB PO SCH (20:52)
[2023-09-11] MEDS: DOCUSATE SODIUM 100MG CAPSULE PO SCH (20:52)
[2023-09-11] MEDS: ESCITALOPRAM OXALATE 10 MG TAB (LEXAPRO) PO SCH (20:52)
[2023-09-11] MEDS: TAMSULOSIN 0.4 MG CAP PO SCH (20:52)
[2023-09-11] MEDS: DIVALPROEX SPRINKLE 125 MG CAP PO SCH (20:53)
[2023-09-11 22:10] VITALS: BP 147/69; TEMP 98.2; O2SAT 95
[2023-09-12 06:00] VITALS: BP 105/62; TEMP 98.1; O2SAT 95
[2023-09-12 06:59] LABS: HEMATOCRIT 36.8 % (42.0-52.0); HEMOGLOBIN 11.6 g/dl (13.5-17.5); MEAN CORPUSCULAR HGB CONC 31.5 g/dl (32.0-36.5); MEAN CORPUSCULAR VOLUME 95.1 fl (80.0-96.0); PLATELET COUNT, AUTOMATED 172 10^3/uL (150-450); RED BLOOD COUNT 3.87 10^6/uL (4.30-6.10); WHITE BLOOD COUNT 8.7 10^3/uL (4.0-10.0)
[2023-09-12 07:29] LABS: BLOOD UREA NITROGEN 20 MG/DL (9-23); CALCIUM LEVEL 8.7 MG/DL (8.3-10.6); CARBON DIOXIDE LEVEL 29 MMOL/L (20-31); CHLORIDE LEVEL 104 MMOL/L (98-107); CREATININE FOR GFR 0.95 MG/DL (0.70-1.30); GLOMERULAR FILTRATION RATE > 60.0 (>35); GLUCOSE, FASTING 102 MG/DL (74-106); POTASSIUM SERUM 4.7 MMOL/L (3.5-5.1); SODIUM LEVEL 139 MMOL/L (136-145)
[2023-09-12] MEDS: DOCUSATE SOD LIQ 100MG/10ML UDC GT SCH (09:00)
[2023-09-12] MEDS: CEFDINIR 300 MG CAP (OMNICEF) PO SCH (09:14)
[2023-09-12] MEDS: LACTOBACILLUS ACIDOPHILUS CAP (BACID) PO SCH (09:15)
[2023-09-12] MEDS: PANTOPRAZOLE 40MG TAB (PROTONIX) PO SCH (09:15)
[2023-09-12] MEDS: ASPIRIN 81MG ENTERIC TABLET PO SCH (09:15)
[2023-09-12] MEDS: ENOXAPARIN 40MG/0.4ML SYRINGE (J1650 PER 10MG) SC SCH (09:16)
[2023-09-12 14:00] VITALS: BP 106/62; TEMP 98.6; O2SAT 98
[2023-09-12] MEDS ORDERED: cefTRIAXone SOD 1 GM in D5W MINI-BAG PLUS 50 ML IV SCH (15:00)
[2023-09-12 21:51] VITALS: BP 110/64; TEMP 97.9; O2SAT 95
[2023-09-13 06:20] LABS: HEMATOCRIT 35.9 % (42.0-52.0); HEMOGLOBIN 11.6 g/dl (13.5-17.5); MEAN CORPUSCULAR HEMOGLOBIN 30.5 pg (27.0-33.0); MEAN CORPUSCULAR HGB CONC 32.3 g/dl (32.0-36.5); MEAN CORPUSCULAR VOLUME 94.5 fl (80.0-96.0); PLATELET COUNT, AUTOMATED 204 10^3/uL (150-450); WHITE BLOOD COUNT 7.8 10^3/uL (4.0-10.0)
[2023-09-13 06:22] VITALS: BP 100/52; TEMP 98.6; O2SAT 92
[2023-09-13 06:49] LABS: BLOOD UREA NITROGEN 22 MG/DL (9-23); CALCIUM LEVEL 8.6 MG/DL (8.3-10.6); CARBON DIOXIDE LEVEL 29 MMOL/L (20-31); CHLORIDE LEVEL 104 MMOL/L (98-107); CREATININE FOR GFR 1.01 MG/DL (0.70-1.30); GLOMERULAR FILTRATION RATE > 60.0 (>35); GLUCOSE, FASTING 105 MG/DL (74-106); POTASSIUM SERUM 4.4 MMOL/L (3.5-5.1); SODIUM LEVEL 138 MMOL/L (136-145)
[2023-09-13] MEDS ORDERED: PROHANCE 279.3MG/ML 5ML VIAL As Ordered ONE (09:32)
[2023-09-13] MEDS ORDERED: PROHANCE 279.3MG/ML 15ML VIAL As Ordered ONE (09:32)
[2023-09-13 14:00] VITALS: BP 126/76; TEMP 97.7; O2SAT 93
[2023-09-13 20:57] VITALS: BP 122/73; TEMP 98.2; O2SAT 93
[2023-09-14 05:22] VITALS: BP 116/62; TEMP 98.6
[2023-09-14] MEDS: BACTRIM 160MG/800MG DS TAB PO SCH (09:02)
[2023-09-14] MEDS ORDERED: AZITHROMYCIN SUSP 200MG/5ML 30ML BOTTLE PO SCH (10:35)
[2023-09-14] MEDS ORDERED: BACTDSTA PO (11:14)
[2023-09-14] MEDS ORDERED: AZIT-12 PO (11:14)
[2023-09-14] MEDS ORDERED: RISATAB3 PO (11:14)
[2023-09-14 11:26] LABS: BASO % 0.2 % (0.0-1.0); EOS # 0.4 10^3/uL (0.0-0.5); EOS % 4.6 % (0.0-3.0); HEMATOCRIT 34.6 % (42.0-52.0); HEMOGLOBIN 11.3 g/dl (13.5-17.5); LYMPH # 1.5 10^3/uL (1.5-5.0); LYMPH % 18.2 % (24.0-44.0); MEAN CORPUSCULAR HEMOGLOBIN 30.1 pg (27.0-33.0); MEAN CORPUSCULAR HGB CONC 32.7 g/dl (32.0-36.5); MEAN CORPUSCULAR VOLUME 92.3 fl (80.0-96.0); MONO # 1.1 10^3/uL (0.0-0.8); MONO % 13.2 % (2.0-8.0); NEUTROPHILS # 5.3 10^3/uL (1.5-8.5); PLATELET COUNT, AUTOMATED 196 10^3/uL (150-450); RED BLOOD COUNT 3.75 10^6/uL (4.30-6.10); WHITE BLOOD COUNT 8.4 10^3/uL (4.0-10.0)
[2023-09-14 11:59] LABS: BLOOD UREA NITROGEN 25 MG/DL (9-23); CALCIUM LEVEL 8.4 MG/DL (8.3-10.6); CARBON DIOXIDE LEVEL 28 MMOL/L (20-31); CHLORIDE LEVEL 107 MMOL/L (98-107); CREATININE FOR GFR 0.92 MG/DL (0.70-1.30); GLOMERULAR FILTRATION RATE > 60.0 (>35); GLUCOSE, FASTING 109 MG/DL (74-106); POTASSIUM SERUM 4.1 MMOL/L (3.5-5.1); SODIUM LEVEL 141 MMOL/L (136-145)
[2023-09-14 14:00] VITALS: BP 121/71; TEMP 98.1; O2SAT 94
[2023-09-14 20:28] VITALS: BP 145/78; TEMP 97.7; O2SAT 93
[2023-09-15 05:31] VITALS: BP 114/64; TEMP 98.4; O2SAT 92
[2023-09-15] MEDS: AZITHROMYCIN 250MG TABLET PO SCH (08:28)
[2023-09-15 14:00] VITALS: BP 114/65; TEMP 97.5; O2SAT 96
== END 2023-09-15 15:51 | disposition home health service (06) | DRG 372 ==
LOC: M ED 11:40 → EDBD 11:40 → EEVIPCON 16:05 → M ED INP 16:05 → ENRESERV 20:59 → M MSPAV 22:09
PROVIDERS: ADMIT Student in an Organized Health Care Education/Training Program; ATTEND General Practice
DX: A04.0 Enteropathogenic Escherichia coli infection (principal); I69.351 Hemiplegia and hemiparesis following cerebral infarction affecting right dominant side; N39.0 Urinary tract infection, site not specified; G37.9 Demyelinating disease of central nervous system, unspecified; E78.5 Hyperlipidemia, unspecified; A08.11 Acute gastroenteropathy due to Norwalk agent; I10 Essential (primary) hypertension; M19.90 Unspecified osteoarthritis, unspecified site; R13.10 Dysphagia, unspecified; Z87.11 Personal history of peptic ulcer disease; R53.1 Weakness; M75.01 Adhesive capsulitis of right shoulder; R33.9 Retention of urine, unspecified; I69.391 Dysphagia following cerebral infarction; R31.9 Hematuria, unspecified; Z66 Do not resuscitate; Z79.82 Long term (current) use of aspirin; Z79.899 Other long term (current) drug therapy; Z99.3 Dependence on wheelchair

== ENCOUNTER → 2023-09-26 | Outpatient (REF) | payer OTHER ==
[~2023-09-26] MED LIST changes: +ATOR40TA75 PO; +AZIT-12 PO; +BACTDSTA PO; +RISATAB3 PO; +TAMS1CAP17 PO
== END ==
LOC: M SFHCPLAZ 15:22
PROVIDERS: ATTEND Family Medicine
DX: E53.8 Deficiency of other specified B group vitamins (principal); I10 Essential (primary) hypertension; K21.9 Gastro-esophageal reflux disease without esophagitis; E78.5 Hyperlipidemia, unspecified; I63.81 Other cerebral infarction due to occlusion or stenosis of small artery; E55.9 Vitamin D deficiency, unspecified; D50.9 Iron deficiency anemia, unspecified

== ENCOUNTER → 2023-09-27 | Outpatient (REF) | payer OTHER ==
[2023-09-27 14:09] LABS: APPEARANCE, URINE HAZY (CLEAR); BACTERIA, URINE AUTO NEGATIVE (NEGATIVE); BILIRUBIN, URINE AUTO NEGATIVE (NEGATIVE); BLOOD, URINE BLOOD NEGATIVE (NEGATIVE); CALCIUM OXALATE CRYSTALS LARGE; COLOR, URINE YELLOW (YELLOW); GLUCOSE, URINE (UA) AUTO NEGATIVE (NEGATIVE); KETONE, URINE AUTO NEGATIVE (NEGATIVE); LEUKOCYTE ESTERASE, URINE AUTO NEGATIVE (NEGATIVE); MUCUS, URINE SMALL (NEGATIVE); NITRITE, URINE AUTO NEGATIVE (NEGATIVE); PROTEIN, URINE AUTO NEGATIVE (NEGATIVE); RBC, URINE AUTO 5 /HPF (0-3); SPECIFIC GRAVITY URINE AUTO 1.027 (1.002-1.035); SQUAMOUS EPITHELIAL CELL UR AU 0 /HPF (0-6); UROBILINOGEN, URINE AUTO 0.2 mg/dL (0.0-2.0); WBC, URINE AUTO 3 /HPF (0-3)
== END ==
LOC: M LAB REF 13:45
PROVIDERS: ATTEND Family Medicine
DX: N39.0 Urinary tract infection, site not specified (principal)

== ENCOUNTER 2023-10-29 12:12 | Observation (INO) | payer MEDICARE, OTHER ==
[~2023-10-29] VITALS: Ht 182.9 cm; Wt 99.0 kg
[2023-10-29 12:46] LABS: BASO % 0.5 % (0.0-1.0); EOS # 0.6 10^3/uL (0.0-0.5); EOS % 6.7 % (0.0-3.0); HEMATOCRIT 40.1 % (42.0-52.0); HEMOGLOBIN 12.8 g/dl (13.5-17.5); LYMPH # 2.9 10^3/uL (1.5-5.0); LYMPH % 33.7 % (24.0-44.0); MEAN CORPUSCULAR HEMOGLOBIN 30.9 pg (27.0-33.0); MEAN CORPUSCULAR HGB CONC 31.9 g/dl (32.0-36.5); MEAN CORPUSCULAR VOLUME 96.9 fl (80.0-96.0); MONO # 0.9 10^3/uL (0.0-0.8); MONO % 10.7 % (2.0-8.0); NEUTROPHILS # 4.1 10^3/uL (1.5-8.5); PLATELET COUNT, AUTOMATED 195 10^3/uL (150-450); RED BLOOD COUNT 4.14 10^6/uL (4.30-6.10); WHITE BLOOD COUNT 8.5 10^3/uL (4.0-10.0)
[2023-10-29 13:08] LABS: ALBUMIN 2.9 G/DL (3.2-5.2); ALKALINE PHOSPHATASE 84 U/L (46-116); ALT/SGPT 17 U/L (7.0-40); AST/SGOT 19 U/L (<34); BILIRUBIN,DIRECT 0.2 MG/DL (<0.4); BILIRUBIN,TOTAL 0.6 MG/DL (0.3-1.2); BLOOD UREA NITROGEN 23 MG/DL (9-23); CALCIUM LEVEL 9.6 MG/DL (8.3-10.6); CARBON DIOXIDE LEVEL 31 MMOL/L (20-31); CHLORIDE LEVEL 106 MMOL/L (98-107); CREATININE FOR GFR 1.08 MG/DL (0.70-1.30); GLOMERULAR FILTRATION RATE > 60.0 (>35); GLUCOSE, FASTING 141 MG/DL (74-106); POTASSIUM SERUM 4.5 MMOL/L (3.5-5.1); SODIUM LEVEL 141 MMOL/L (136-145); TOTAL PROTEIN 5.9 G/DL (5.7-8.2)
[2023-10-29 13:10] LABS: THYROID STIMULATING HORMONE 3.252 uIU/ML (0.55-4.78)
[2023-10-29 13:31] LABS: OSMOLALITY SERUM 300 MOSM/KG (280-301)
[2023-10-29] MEDS ORDERED: AVOD0.5C PO (13:53)
[2023-10-29] MEDS ORDERED: D200CAP3 PO (13:53)
[2023-10-29] MEDS ORDERED: DIVA125C6 PO (13:53)
[2023-10-29] MEDS ORDERED: LIDO5TD TOP (13:53)
[2023-10-29] MEDS ORDERED: HOME MED LIST COMPLETE! XX SCH (13:55)
[2023-10-29] MEDS ORDERED: MORPHINE 2 MG/ML 1ML VIAL IV PRN (16:35)
[2023-10-29] MEDS: LR 1,000 ML IV ONE (16:41)
[2023-10-29 17:46] LABS: VALPROIC ACID (DEPAKOTE) 51.7 UG/ML (50.0-100.0)
[2023-10-29] MEDS: TAMSULOSIN 0.4 MG CAP PO SCH (21:56)
[2023-10-29] MEDS: ESCITALOPRAM OXALATE 10 MG TAB (LEXAPRO) PO SCH (21:56)
[2023-10-29] MEDS: DIVALPROEX SPRINKLE 125 MG CAP PO SCH (21:56)
[2023-10-29 23:08] VITALS: BP 134/71; TEMP 97.5; O2SAT 94
[2023-10-30] MEDS: NYSTATIN 100,000 UNITS/GM TOPICAL PWD 15GM TOP SCH (04:22)
[2023-10-30 04:24] VITALS: BP 106/65; TEMP 97.7; O2SAT 93
[2023-10-30 06:22] LABS: HEMATOCRIT 37.9 % (42.0-52.0); HEMOGLOBIN 12.3 g/dl (13.5-17.5); MEAN CORPUSCULAR HEMOGLOBIN 31.1 pg (27.0-33.0); MEAN CORPUSCULAR HGB CONC 32.5 g/dl (32.0-36.5); MEAN CORPUSCULAR VOLUME 95.7 fl (80.0-96.0); PLATELET COUNT, AUTOMATED 164 10^3/uL (150-450); RED BLOOD COUNT 3.96 10^6/uL (4.30-6.10); WHITE BLOOD COUNT 7.5 10^3/uL (4.0-10.0)
[2023-10-30 06:44] LABS: BLOOD UREA NITROGEN 19 MG/DL (9-23); CALCIUM LEVEL 9.3 MG/DL (8.3-10.6); CARBON DIOXIDE LEVEL 29 MMOL/L (20-31); CHLORIDE LEVEL 106 MMOL/L (98-107); CREATININE FOR GFR 0.84 MG/DL (0.70-1.30); GLOMERULAR FILTRATION RATE > 60.0 (>35); GLUCOSE, FASTING 96 MG/DL (74-106); POTASSIUM SERUM 4.1 MMOL/L (3.5-5.1); SODIUM LEVEL 139 MMOL/L (136-145)
[2023-10-30] MEDS: LIDOCAINE 5% (LIDODERM) PATCH TOP SCH (09:00)
[2023-10-30] MEDS: DUTASTERIDE 0.5 MG CAP (AVODART) PO SCH (09:18)
[2023-10-30] MEDS: DIVALPROEX SPRINKLE 125 MG CAP PO SCH (09:18)
[2023-10-30] MEDS: CYANOCOBALAMIN 500 MCG TAB PO SCH (09:18)
[2023-10-30] MEDS: ASPIRIN 81MG ENTERIC TABLET PO SCH (09:18)
[2023-10-30] MEDS: ATORVASTATIN 20 MG TAB PO SCH (09:19)
[2023-10-30] MEDS: ENOXAPARIN 40MG/0.4ML SYRINGE (J1650 PER 10MG) SC SCH (09:20)
[2023-10-30] MEDS ORDERED: NYST1POW9 TOP (10:46)
== END 2023-10-30 13:23 | disposition home health service (06) ==
LOC: M ED 12:12 → EDBD 12:12 → M ED INP 16:28 → M MSPAV 23:01
PROVIDERS: ADMIT Internal Medicine; ATTEND Internal Medicine
DX: R53.1 Weakness (principal); E87.20 Acidosis, unspecified; I69.351 Hemiplegia and hemiparesis following cerebral infarction affecting right dominant side; G40.909 Epilepsy, unspecified, not intractable, without status epilepticus; N40.1 Benign prostatic hyperplasia with lower urinary tract symptoms; M19.90 Unspecified osteoarthritis, unspecified site; F32.A Depression, unspecified; M79.89 Other specified soft tissue disorders; K21.9 Gastro-esophageal reflux disease without esophagitis; E55.9 Vitamin D deficiency, unspecified; E53.8 Deficiency of other specified B group vitamins; M50.30 Other cervical disc degeneration, unspecified cervical region; Z87.440 Personal history of urinary (tract) infections; L30.4 Erythema intertrigo; Z82.3 Family history of stroke; F17.200 Nicotine dependence, unspecified, uncomplicated; Z79.899 Other long term (current) drug therapy; Z79.82 Long term (current) use of aspirin
CPT/HCPCS: 36415; 70450; 70551; 71045; 80048; 80076; 80164; 81001; 82140; 82607; 83605; 83930; 84443; 85025; 85027; 87040; 87486; 87581; 87633; 87798; 93005; 93041; 93971; 94760; 96360; 96361; 96372; 99285; G0378; G0463; J1650

== ENCOUNTER → 2024-03-31 | Outpatient (REF) | payer OTHER, MEDICARE ==
[~2024-03-31] MED LIST changes: +AVOD0.5C PO; +D200CAP3 PO; +LIDO5TD TOP; +NYST1POW3 TOP
[2024-03-31 12:57] LABS: BASO % 0.3 % (0.0-1.0); EOS # 0.7 10^3/uL (0.0-0.5); EOS % 6.1 % (0.0-3.0); HEMATOCRIT 40.8 % (42.0-52.0); HEMOGLOBIN 13.2 g/dl (13.5-17.5); LYMPH # 4.8 10^3/uL (1.5-5.0); LYMPH % 44.6 % (24.0-44.0); MEAN CORPUSCULAR HEMOGLOBIN 32.5 pg (27.0-33.0); MEAN CORPUSCULAR HGB CONC 32.4 g/dl (32.0-36.5); MEAN CORPUSCULAR VOLUME 100.5 fl (80.0-96.0); MONO # 0.8 10^3/uL (0.0-0.8); MONO % 7.8 % (2.0-8.0); NEUTROPHILS # 4.4 10^3/uL (1.5-8.5); NEUTROPHILS % 40.8 % (36.0-66.0); PLATELET COUNT, AUTOMATED 148 10^3/uL (150-450); RED BLOOD COUNT 4.06 10^6/uL (4.30-6.10); WHITE BLOOD COUNT 10.7 10^3/uL (4.0-10.0)
[2024-03-31 13:21] LABS: VALPROIC ACID (DEPAKOTE) 53.9 UG/ML (50.0-100.0)
[2024-03-31 13:25] LABS: ALBUMIN 3.2 G/DL (3.2-5.2); ALKALINE PHOSPHATASE 88 U/L (40-129); ALT/SGPT 12 U/L (7.0-40); AST/SGOT 15 U/L (<34); BILIRUBIN,TOTAL 0.6 MG/DL (0.3-1.2); BLOOD UREA NITROGEN 21 MG/DL (9-23); CALCIUM LEVEL 9.7 MG/DL (8.3-10.6); CARBON DIOXIDE LEVEL 28 MMOL/L (20-31); CHLORIDE LEVEL 104 MMOL/L (98-107); CHOLESTEROL LEVEL 174 MG/DL (<200); CHOLESTEROL RISK RATIO 3.02 (<5); CREATININE FOR GFR 0.98 MG/DL (0.70-1.30); GLOMERULAR FILTRATION RATE > 60.0 (>35); GLUCOSE, FASTING 93 MG/DL (74-106); HDL CHOLESTEROL 57.5 MG/DL (>40); LDL CHOLESTEROL 84.7 MG/DL (<100); NON-HDL-C 116.5 MG/DL; POTASSIUM SERUM 3.9 MMOL/L (3.5-5.1); PTH INTACT 33.6 PG/ML (18.5-88.0); SODIUM LEVEL 142 MMOL/L (136-145); TOTAL 25(OH) VITAMIN D 61.6 NG/ML (20.0-100.0); TOTAL PROTEIN 6.5 G/DL (5.7-8.2); TRIGLYCERIDES LEVEL 159 MG/DL (<150)
== END ==
LOC: M SHH 12:06
PROVIDERS: ATTEND Family Medicine
DX: E53.8 Deficiency of other specified B group vitamins (principal); I10 Essential (primary) hypertension; E78.5 Hyperlipidemia, unspecified; I63.81 Other cerebral infarction due to occlusion or stenosis of small artery; D50.9 Iron deficiency anemia, unspecified

== ENCOUNTER → 2025-03-21 | Outpatient (CLI) | payer MEDICARE, OTHER ==
[~2025-03-21] MED LIST changes: -FLOM0.4C39 PO; +TAMS-18 PO
[2025-03-21 15:32] LABS: BASO # 0.0 10^3/uL (0.0-0.2); BASO % 0.3 % (0.0-1.0); EOS # 0.2 10^3/uL (0.0-0.5); EOS % 3.4 % (0.0-3.0); LYMPH # 2.8 10^3/uL (1.5-5.0); LYMPH % 40.1 % (24.0-44.0); MONO # 0.5 10^3/uL (0.0-0.8); MONO % 7.0 % (2.0-8.0); NEUTROPHILS # 3.4 10^3/uL (1.5-8.5); NEUTROPHILS % 48.9 % (36.0-66.0); PLATELET COUNT, AUTOMATED 157 10^3/uL (150-450)
[2025-03-21 15:43] LABS: ALT/SGPT 14.0 U/L (7.0-40); AST/SGOT 17.0 U/L (<34); CALCIUM LEVEL 9.1 MG/DL (8.3-10.6); CARBON DIOXIDE LEVEL 28.0 MMOL/L (20-31); CHLORIDE LEVEL 108.0 MMOL/L (98-107); CHOLESTEROL LEVEL 142.0 MG/DL (<200); CHOLESTEROL RISK RATIO 2.34 (<5); CREATININE FOR GFR 1.04 MG/DL (0.70-1.30); GLOMERULAR FILTRATION RATE 70.8 (>35); LDL CHOLESTEROL 68.3 MG/DL (<100); NON-HDL-C 81.5 MG/DL; POTASSIUM SERUM 3.9 MMOL/L (3.5-5.1); PSA SCREENING 0.45 NG/ML (< 4.00); PTH INTACT 46.6 PG/ML (18.5-88.0); SODIUM LEVEL 144.0 MMOL/L (136-145); TRIGLYCERIDES LEVEL 66.0 MG/DL (<150)
[2025-03-21 15:45] LABS: TOTAL 25(OH) VITAMIN D 67.4 NG/ML (20.0-100.0)
[2025-03-21 15:59] LABS: ESTIMATED AVERAGE GLUCOSE 117.0 MG/DL (60-110)
[2025-03-24 17:38] LABS: SOLUBLE TRANSFERRIN RECEPTOR 1.31 mg/L (0.76-1.76)
== END ==
LOC: M PLALAB 13:34
PROVIDERS: ATTEND Family Medicine
DX: E78.5 Hyperlipidemia, unspecified (principal); D50.9 Iron deficiency anemia, unspecified; E53.8 Deficiency of other specified B group vitamins; I10 Essential (primary) hypertension; R73.01 Impaired fasting glucose; Z12.5 Encounter for screening for malignant neoplasm of prostate; E55.9 Vitamin D deficiency, unspecified; K75.81 Nonalcoholic steatohepatitis (NASH); I50.32 Chronic diastolic (congestive) heart failure
CPT/HCPCS: 36415; 80053; 80061; 81517; 82306; 82728; 83036; 83880; 83970; 84238; 85025; G0103